=== PATIENT | male | born 1980 | race Hispanic/Latino ===

== ENCOUNTER 2018-10-07 19:03 | Emergency (ER) | payer OTHER, SELFPAY ==
[2018-10-07] MEDS ORDERED: diphenhydrAMINE 25 MG CAP ONE (19:26)
[2018-10-07] MEDS ORDERED: Famotidine 20 MG TAB ONE (19:26)
[2018-10-07] MEDS ORDERED: predniSONE 20 MG TAB ONE (19:26)
== END 2018-10-07 21:30 | disposition home or self-care (01) ==
LOC: NAV ERS 19:03
DX: T63.481A Toxic effect of venom of other arthropod, accidental (unintentional), initial encounter (principal); L50.9 Urticaria, unspecified; J45.909 Unspecified asthma, uncomplicated; Z79.899 Other long term (current) drug therapy
CPT/HCPCS: 99283; J7512; Q0163